=== PATIENT | male | born 1980 | race African-American/Black ===

== ENCOUNTER 2016-10-20 07:20 | Emergency (ER) | payer OTHER ==
[~2016-10-20] VITALS: Ht 198.1 cm; Wt 90.7 kg
[~2016-10-20 07:20] MED LIST: MIRALAX255 GM PO; NOHOMEMEDICATIONS
[2016-10-20 08:05] LABS: HEMOGLOBIN 12.2 gm/dL (14.0-18.0); MCHC 32.2 g/dL (28.0-37.0); MCV 62.2 fL (80.0-100.0); PLATELET COUNT 185 thou/uL (150-400); RBC 6.11 mil/uL (4.50-6.00); RDW 16.3 % (10.5-14.5); WBC 6.4 thou/uL (4.0-11.0)
[2016-10-20 08:06] LABS: MANUAL DIFF YES
[2016-10-20 08:27] LABS: CALCIUM 8.8 mg/dL (8.5-10.1); CREATININE 1.1 mg/dL (0.7-1.3); POTASSIUM 3.8 mmol/L (3.5-5.1)
[2016-10-20 08:29] LABS: ABSOLUTE NEUTROPHILS 4.4 thou/uL (1.4-8.2); TOTAL CELL COUNT 100
[2016-10-20 08:30] LABS: ANISOCYTOSIS 1+; HYPOCHROMASIA 2+; MICROCYTES 3+; TARGET CELLS OCCASIONAL
[2016-10-20 08:31] LABS: POLYCHROMASIA SLIGHT
[2016-10-20 08:41] LABS: URINE BILIRUBIN NEGATIVE (Negative); URINE BLOOD NEGATIVE (Negative); URINE COLOR YELLOW; URINE GLUCOSE-RANDOM* NEGATIVE (Negative); URINE KETONES NEGATIVE (Negative); URINE LEUKOCYTES-REFLEX NEGATIVE (Negative); URINE PROTEIN (DIPSTICK) TRACE (Negative); URINE SPECIFIC GRAVITY 1.025 (1.003-1.035); URINE UROBILINOGEN 0.2 E.U./dl (0.2-1.0)
[2016-10-20] MEDS ORDERED: LEVSIN0.125 MG PO (08:54)
[2016-10-20 09:06] VITALS: BP 115/76
== END 2016-10-20 09:07 | disposition home or self-care (01) ==
LOC: ER 07:20
PROVIDERS: Emergency Medicine
DX: R19.7 Diarrhea, unspecified (principal); R10.30 Lower abdominal pain, unspecified